=== PATIENT | male | born 1960 | race Caucasian/White ===

== ENCOUNTER 2022-01-09 16:45 | Emergency (ER) | payer MEDICARE ==
[2022-01-09 17:13] VITALS: BP 153/77; PULSE 75; RESP 16; TEMP 98.1
--- NOTE | 2022-01-09 19:45 | US ---
EXAMINATION TYPE: US groin RT DATE OF EXAM: 01/09/2022 COMPARISON: NONE CLINICAL HISTORY: groin pain. Right groin pain Right groin/upper medial thigh: No mass or fluid collection seen. No thrombus seen within greater sap henous vein at patient's area of concern IMPRESSION: No acute sonographic abnormality.
[2022-01-09 20:18] LABS: Appearance,Urine Clear (Clear); Bilirubin,Urine Negative (Negative); Blood,Urine Negative (Negative); Color,Urine Light Yellow; Glucose,Urine (UA) Negative (Negative); Ketones,Urine Negative (Negative); Leukocyte Esterase,Urine Negative (Negative); Nitrite,Urine Negative (Negative); PH, Urine 5.5 (5.0-8.0); Protein,Urine Negative (Negative); Specific Gravity,Urine 1.009 (1.001-1.035); Urobilinogen,Urine <2.0 mg/dL (<2.0)
--- NOTE | 2022-01-09 20:43 | ED ---
General Adult HPI - General Chief complaint: Recheck/Abnormal Lab/Rx Stated complaint: R leg pain Time Seen by Provider: 01/09/22 18:32 Source: patient Mode of arrival: ambulatory Limitations: no limitations - History of Present Illness Initial comments: 61 year male past medical history of hypertension presents to the emergency department with right-sided groin pain. States been going on for the past 3 months. It is tender to touch and worse when he goes from a sitting to standing position. He is not taking anything at home for pain control. Today he states that when he stood up and made him feel dizzy and that's why he presents today for evaluation. No abdominal pain. No flank pain. Denies any changes in his bowel or bladder habits. No other alleviating, precipitating factors - Related Data Allergies Allergy/AdvReac Type Severity Reaction Status Date / Time No Known Allergies Allergy Verified 01/09/22 17:13 Review of Systems ROS Statement: Those systems with pertinent positive or pertinent negative responses have been documented in the HPI. ROS Other: All systems not noted in ROS Statement are negative. Past Medical History Past Medical History: Hypertension History of Any Multi-Drug Resistant Organisms: None Reported Past Surgical History: Orthopedic Surgery Additional Past Surgical History / Comment(s): elbow surgery Past Psychological History: No Psychological Hx Reported Smoking Status: Current every day smoker Past Alcohol Use History: None Reported Past Drug Use History: None Reported General Exam Limitations: no limitations General appearance: alert, in no apparent distress Head exam: Present: atraumatic, normocephalic, normal inspection Eye exam: Present: normal appearance, PERRL, EOMI. Absent: scleral icterus, conjunctival injection, periorbital swelling ENT exam: Present: normal exam, mucous membranes moist Neck exam: Present: normal inspection. Absent: tenderness, meningismus, lymphadenopathy Respiratory exam: Present: normal lung sounds bilaterally. Absent: respiratory distress, wheezes, rales, rhonchi, stridor Cardiovascular Exam: Present: regular rate, normal rhythm, normal heart sounds. Absent: systolic murmur, diastolic murmur, rubs, gallop, clicks GI/Abdominal exam: Present: soft, normal bowel sounds, other (no hernias present. no groin mass. no testicular pain or swelling). Absent: distended, tenderness, guarding, rebound, rigid Extremities exam: Present: normal inspection, full ROM, normal capillary refill. Absent: tenderness, pedal edema, joint swelling, calf tenderness Back exam: Present: normal inspection Neurological exam: Present: alert, oriented X3, CN II-XII intact Psychiatric exam: Present: normal affect, normal mood Skin exam: Present: warm, dry, intact, normal color. Absent: rash Course Vital Signs 01/09/22 17:10 Temperature 98.1 F Pulse Rate 75 Respiratory 16 Rate Blood Pressure 153/77 O2 Sat by Pulse 98 Oximetry Medical Decision Making - Medical Decision Making Upon arrival patient was placed into room 15. There are history of physical exam is performed. Ultrasound was performed which does not demonstrate any signs of mass, fluid, thrombus. Urinalysis is negative for infection. Results are discussed patient. Feels reassured by the results. He will be discharged home. Recommend that he follow-up with the primary care doctor in 2-4 days and return for any new or worsening symptoms. Patient was discharged home in stable condition - Lab Data Lab Results 01/09/22 Range/Units 19:58 Urine Color Light Yellow Urine Appearance Clear (Clear) Urine pH 5.5 (5.0-8.0) Ur Specific [place] 1.009 (1.001-1.035) Urine Protein Negative (Negative) Urine Glucose (UA) Negative (Negative) Urine Ketones Negative (Negative) Urine Blood Negative (Negative) Urine Nitrite Negative (Negative) Urine Bilirubin Negative (Negative) Urine Urobilinogen <2.0 (<2.0) mg/dL Ur Leukocyte Esterase Negative (Negative) Disposition Clinical Impression: Strain of right groin Disposition: HOME SELF-CARE Condition: Stable Instructions (If sedation given, give patient instructions): Groin Strain (ED) Additional Instructions: Place warm compresses to the site. Recommend groin stretches. Follow up with your PCP in 2-4 days. Return to the ED for any new or worsening symptoms. Is patient prescribed a controlled substance at d/c from ED?: No Referrals: None,Stated [Primary Care Provider] - 1-2 days Betty Jay III, MD [STAFF PHYSICIAN] - 1-2 days Shell Chauhan MD [STAFF PHYSICIAN] - 1-2 days Nas Ibarra MD [REFERRING] - 1-2 days Time of Disposition: 20:42
== END 2022-01-09 20:49 | disposition home or self-care (01) ==
LOC: EC 16:45
DX: S39.011A Strain of muscle, fascia and tendon of abdomen, initial encounter (principal); F17.200 Nicotine dependence, unspecified, uncomplicated; I10 Essential (primary) hypertension; X58.XXXA Exposure to other specified factors, initial encounter
CPT/HCPCS: 81003; 99284

== ENCOUNTER 2022-02-25 12:49 | Emergency (ER) | payer MEDICARE ==
[2022-02-25 12:55] VITALS: BP 136/90; PULSE 96; RESP 20; TEMP 98
--- NOTE | 2022-02-25 13:22 | XR ---
EXAMINATION TYPE: XR shoulder complete LT DATE OF EXAM: 02/25/2022 CLINICAL HISTORY: Pain. Recent fall injury. TECHNIQUE: Three views of the left shoulder are obtained. COMPARISON: None. FINDINGS: There is no acute fracture/dislocation evident in the left shoulder. The acromioclavicula r and glenohumeral joint spaces appear within normal limits. The visualized ribs are intact and unre markable. IMPRESSION: There is no acute fracture or dislocation in the left shoulder.
--- NOTE | 2022-02-25 13:42 | ED ---
General Adult HPI - General Chief complaint: Extremity Injury, Upper Stated complaint: Fall @0200/Lt Shoulder Injury Time Seen by Provider: 02/25/22 13:30 Source: patient, RN notes reviewed, old records reviewed Mode of arrival: ambulatory Limitations: no limitations - History of Present Illness Initial comments: This is a 61-year-old male who states he tripped over a cement curb and landed on his left shoulder. Patient states the shoulder is tender in the anterior aspect where he landed. Patient does have full range of motion but it hurts to abduct. Patient denies any head or neck. Patient denies any chest or back. Patient denies abdominal pain. Patient denies any other injury. - Related Data Previous Rx's Medication Instructions Recorded Ibuprofen [Motrin] 600 mg PO Q6HR PRN #20 tab 02/25/22 Allergies Allergy/AdvReac Type Severity Reaction Status Date / Time No Known Allergies Allergy Verified 02/25/22 12:51 Review of Systems ROS Statement: Those systems with pertinent positive or pertinent negative responses have been documented in the HPI. ROS Other: All systems not noted in ROS Statement are negative. Past Medical History Past Medical History: Hypertension History of Any Multi-Drug Resistant Organisms: None Reported Past Surgical History: Orthopedic Surgery Additional Past Surgical History / Comment(s): elbow surgery Past Psychological History: No Psychological Hx Reported Smoking Status: Current every day smoker Past Alcohol Use History: None Reported Past Drug Use History: None Reported General Exam - General Exam Comments Initial Comments: GENERAL Patient is well-developed and well-nourished. Patient is in mild distress. EYES Patient's pupils are equal and round. Extraocular motion is intact SKIN Unremarkable NEURO The patient is alert and oriented 3 PYSCH Patient has normal interpersonal interactions. MUSCULOSKELETAL Left shoulder is tender in the anterior aspect there is no bruising and no swelling. Patient is able to have full range of motion of the shoulder relative to the other side. Limitations: no limitations Course Vital Signs 02/25/22 12:51 Temperature 98 F Pulse Rate 96 Respiratory 20 Rate Blood Pressure 136/90 O2 Sat by Pulse 96 Oximetry Medical Decision Making - Medical Decision Making X-ray of shoulder shows no acute abnormality Disposition Clinical Impression: Shoulder sprain Disposition: HOME SELF-CARE Condition: Good Instructions (If sedation given, give patient instructions): Shoulder Sprain (ED) Prescriptions: Ibuprofen [Motrin] 600 mg PO Q6HR PRN #20 tab PRN Reason: For pain Is patient prescribed a controlled substance at d/c from ED?: No Referrals: None,Stated [Primary Care Provider] - 1-2 days Time of Disposition: 13:42
== END 2022-02-25 14:11 | disposition home or self-care (01) ==
LOC: EC 12:49
DX: S43.402A Unspecified sprain of left shoulder joint, initial encounter (principal); I10 Essential (primary) hypertension; F17.200 Nicotine dependence, unspecified, uncomplicated; Z79.899 Other long term (current) drug therapy; W22.8XXA Striking against or struck by other objects, initial encounter
CPT/HCPCS: 99283